=== PATIENT | male | born 1960 | race Caucasian/White ===

== ENCOUNTER 2025-05-11 15:52 | Emergency (ER) | payer BC, MEDICARE, SELFPAY ==
[2025-05-11 15:56] VITALS: BP 177/91
--- NOTE | 2025-05-11 16:48 | ED.MUSCINJ ---
HPI-Injury
General
Chief Complaint: Musculo-Skeletal Complaint
Source: patient
Exam Limitations: none
Time Seen by Provider: 05/11/25 16:22
Nursing documentation reviewed up to this point in time: agreed with
History of Present Illness-Injury
Initial Injury comments:
64 yo male who reports injuring his right knee following a fall. 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 The patient notes that he might have
twisted his knee during the fall but landed on his backside. He expresses difficulty bearing weight on the knee, significant pain with movement and now pain 4/10 at rest. The patient mentioned that he took Ibuprofen for the pain.
Past History
Past History
ED Past Medical History: HTN, Hypercholesterolemia and Psychiatric (depression )
Social History
Tobacco: Non-smoker
Alcohol: None
Personal:
Living: with family
Employment: Employed
Review of Systems
Review of Systems
Allergies reviewed?: Yes
All Other Systems: ROS reviewed and negative except as documented in HPI and ROS
Musculoskeletal: Reports other (pain, swelling right knee, left ankle Swelling noted, though the patient attributes this to bee stings 2 days ago.)
Skin: Reports other (multiple minor cuts on legs from falling knives)
Musculoskeletal Injury Exam
Musculoskeletal Injury Exam
Right Knee:
Pain with Movement?: Moderate
Tender to palpation?: Moderate
Soft tissue swelling?: Moderate (distal quadriceps tendon swollen and 'mushy' )
External deformity and angulation?: None
Strain- Sprain- Tear (Connective tissue injury)?: Moderate
Malalignment/deformity?: No
Range of motion: Limited
Distal skin color and temperature: normal-warm & good color
Capillary Refill: normal
Normal distal neurovascular exam?: Yes
Phy Exam
Physical Exam
Physical Exam:
GENERAL: No acute distress. A&Ox3.
CONSTITUTIONAL: Afebrile.
EYES: clear, conjunctivae normal
ENMT: moist mucus membranes, Pharynx nl
RESPIRATORY: Regular respirations, nonlabored, lungs clear.
CARDIOVASCULAR: Regular rate and rhythm, no murmurs, no rubs.
GI: Soft, nontender, normal BS
MUSCULOSKELETAL: Well perfused.
SKIN: Warm, dry, pink, several small superficial cuts to legs
PSYCH: Normal mood and affect. Well kept, interactive and appropriate
NEUROLOGIC: Awake, alert and oriented. No focal neurological deficits
Injury Course
Orders/Labs/Results
Orders:
Orders
05/11/25 15:59
Knee, Right 4 or More Views [CR Knee- Right 4 Or More View*] Urgent
Comment:
Reason For Exam: pain
05/11/25 16:48
Crutches-Treatment ONCE
Knee Immobilizer Right-Treatme ONCE
MDM/Problems Addressed
Differential Diagnosis Includes:
Quadriceps tendon rupture, meniscal tear, cruciate ligament tear, CL sprain, fracture
MDM/Problems Addressed:
64 yo male who reports injuring his right knee following a fall. 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 The patient notes that he might have
twisted his knee during the fall but landed on his backside. He expresses difficulty bearing weight on the knee, significant pain with movement and now pain 4/10 at rest. The patient mentioned that he took Ibuprofen for the pain. He also has
several small cuts on legs from the falling knives. Had Tdap within past 5 years.
R knee xray: No acute bony abnormality, mild suprapatellar effusion.
swollen 'mushy' distal quadriceps indicating possible tendon rupture, as he is unable to lift the leg straight.
Texted Dr. Dangelo who states he will alert staff to get pt in sooner rather than later.
Bp still high but he states it's his pain. He will check it at home.
*Pulse Oximetry
SaO2: 99
Oxygen Mode of Delivery: Room air
Patient hypoxic: not evaluated
*Critical Care Note
Total Time (30-74mins, 75-104mins- exclusive of procedures): Not Applicable
ED Attending Note
-
Portions of this chart may have been created with voice recognition software.� Occasional wrong word or��sound alike� substitutions may have occurred due to the inherent limitations of voice recognition software.
Discharge Plan
Departure
Patient Disposition: Home (Routine Discharge)
Date of Disposition: 05/11/25
Time of Disposition: 16:57
Patient with high blood pressure during this ER visit?: No
Condition: Good
Discharge Problem:
Rupture of right quadriceps muscle, Fall from slip, trip, or stumble, Abrasion of multiple sites of lower extremity
Instructions: Taking care of cuts, scrapes, and puncture wounds, Using Cold for Pain, Quadriceps and Patellar Tendon Injuries
Referrals:
Kade Dangelo MD [Active, Orthopedics] - Call in 1-3 days for appt
Activity Restrictions/Additional Instructions:
As we discussed, I notified Dr. [facility] you would be calling tomorrow and asked if he could get you in sooner rather than later which he will try to do.
Ibuprofen 600 mg (with offd) every 6 hours as needed for pain
Open the knee immobilizer and apply cold compress 20 minutes off and on today and tomorrow as much as you can.
Wear the knee immobilizer at all times until further instructed by the orthopedic doctor.
Use the crutches with little to no weight bearing until then.
Interventions
Interventions:
*Risk Screen - Suicide Last Done: 05/11/25 15:56
*General Assessment Last Done: 05/11/25 16:22
*Neglect/Abuse Screening Last Done: 05/11/25 15:56
*ED- Fall Risk Assessment Last Done: 05/11/25 16:22
*ED COVID-19 Vaccine History Last Done: 05/11/25 16:22
*Nursing Disposition Last Done: 05/11/25 17:59
ED-Musculoskeletal Assessment Last Done: 05/11/25 16:22
Discharge Date and Time
Discharge Date/Time: 05/11/25 18:00
Print Language: [email or web address]
[2025-05-11 17:02] VITALS: BP 174/86
== END 2025-05-11 18:00 | disposition home or self-care (01) ==
LOC: EMR 15:52
PROVIDERS: EMERGENCY PHYSICIAN Emergency Medicine; FAMILY PHYSICIAN Internal Medicine
DX: S76.111A Strain of right quadriceps muscle, fascia and tendon, initial encounter (principal); S80.812A Abrasion, left lower leg, initial encounter; S80.811A Abrasion, right lower leg, initial encounter; W19.XXXA Unspecified fall, initial encounter; I10 Essential (primary) hypertension; E78.00 Pure hypercholesterolemia, unspecified; F32.A Depression, unspecified
CPT/HCPCS: 99283; 73564

== ENCOUNTER → 2025-05-12 15:35 | Outpatient (REF) | payer MEDICARE, BC, SELFPAY ==
[2025-05-12 16:53] LABS: Hematocrit 44.3 % (39.0-52.0); Hemoglobin 15.3 g/dL (13.0-18.0); Mean Corp Hgb Conc. 34.5 g/dL (33.0-37.0); Mean Corpuscular Volume 87.4 fL (80.0-94.0); Nucleated Red Blood Cells % 0 % (-); Platelet Count 232 10^3/uL (130-400); Red Cell Dist. Width 13.2 % (11.5-14.5)
[2025-05-12 17:29] LABS: Blood Urea Nitrogen 20 mg/dl (9-20); Calcium 9.5 mg/dl (8.4-10.2); Carbon Dioxide 26 mmol/L (22-30); Chloride 105 mmol/L (98-107); Glucose 103 mg/dl (70-99); Potassium 3.7 mmol/L (3.5-5.1); Sodium 140 mmol/L (135-145); eGFR > 60.00
== END ==
LOC: REG 15:35
PROVIDERS: ATTENDING PHYSICIAN Specialist; FAMILY PHYSICIAN Internal Medicine
DX: Z01.818 Encounter for other preprocedural examination (principal)
CPT/HCPCS: 36415; 80048; 85025; 93005

== ENCOUNTER 2025-05-16 06:16 | Day surgery (SDC) | payer MEDICARE, BC, SELFPAY ==
[2025-05-16] VITALS (10 sets, daily range): BP systolic 122–190; BP diastolic 69–97; BMI 33.8
[2025-05-16] MEDS: TYLENOL 1000 MG PO (10:13)
[2025-05-16] MEDS: CELEBREX 200 MG PO (10:13)
[2025-05-16] MEDS: NORMOSOL-R/PLASMALYTE-A 1000 IV (10:36)
[2025-05-16] MEDS: TYLENOL 650 MG PO (16:22)
== END 2025-05-16 16:45 | disposition home or self-care (01) ==
LOC: SDS 06:16
PROVIDERS: ATTENDING PHYSICIAN Specialist
DX: S76.111A Strain of right quadriceps muscle, fascia and tendon, initial encounter (principal); W19.XXXA Unspecified fall, initial encounter; I10 Essential (primary) hypertension
CPT/HCPCS: 27385; 97162